=== PATIENT | male | born 1990 | race Hispanic/Latino ===

== ENCOUNTER 2016-09-18 01:47 | Emergency (ER) | payer OTHER ==
[~2016-09-18] VITALS: Ht 165.1 cm; Wt 59.0 kg
[2016-09-18] MEDS ORDERED: DICL50TA6 PO (02:52)
--- NOTE | 2016-09-18 02:52 | ED Chest Pain ---
General Chief Complaint: Chest Pain Stated Complaint: CHEST PAIN Nursing Triage Note: c/o chest pain x 1 week Nursing Sepsis Screen: No Definite Risk Source: patient Exam Limitations: no limitations History of Present Illness Time seen by provider: 02:22 Initial Comments Patient presents c/ a 1 week hx of intermittent sharp stabbing right sided lower ACW pain. Worse c/ full inspiration and full expiration. Never had before. No N/V, or diaphoresis. No radiation. No SOA; No cough. No fever. Not aware of any injury. Timing/Duration: 1 week, intermittent Severity/Quality: sharp, stabbing (06/24) Location: other (right lower ACW) Radiation: no radiation Activities at Onset: other (unknown) Prior CP/Workup: no prior chest pain, no prior cardiac workup Modifying Factors: worse with breathing, worse with palpation ASA po ROLL SCALE MAN: No NTG SL ROLL SCALE MAN: No Associated Symptoms: No diaphoresis, No fever/chills, No nausea/vomiting, No shortness of breath, No swelling/lump in chest, No syncope Allergies and Home Medications Allergies Coded Allergies: No Known Drug Allergies (Unverified , 01/21/16) Home Medications Diclofenac Sodium 50 Mg Tablet.dr, 50 MG PO Q6H PRN for chest pain, #30 Ref 0 Prescribed by: MEENAKSHI PENNY on 09/18/16 0252 Review of Systems Constitutional: see HPI Cardiovascular: See HPI, Chest Pain All Other Systems Reviewed Negative Unless Noted: Yes (Negative excepted noted.) Past [id number]-Pisbea-Iylkxi Hx Patient Social History Alcohol Use: Denies Use Recreational Drug Use: No Type Used: Cigarettes Recent Foreign Travel: No Contact w/Someone Who Travel: No Recent Infectious Disease Expo: No Recent Hopitalizations: No Immunizations Up To Date Tetanus Booster (TDap): Less than 5yrs Seasonal Allergies Seasonal Allergies: No Surgeries HX Surgeries: Yes (LUNG) Respiratory Hx Respiratory Disorders: No Cardiovascular Hx Cardiac Disorders: No Neurological Hx Neurological Disorders: No Reproductive System Hx Reproductive Disorders: No Genitourinary Hx Genitourinary Disorders: No Gastrointestinal Hx Gastrointestinal Disorders: No Musculoskeletal Hx Musculoskeletal Disorders: No Endocrine Hx Endocrine Disorders: No HEENT HX ENT Disorders: No Cancer Hx Cancer: No Psychosocial Hx Psychiatric Problems: No Integumentary HX Skin/Integumentary Disorder: No Blood Transfusions Hx Blood Disorders: No Adverse Reaction to a Blood Tr: No Physical Exam Vital Signs Vital Sign - Last 12Hours 09/18/16 02:04 Temp 98.8 Pulse 83 Resp 18 B/P (MAP) 119/88 Pulse Ox 97 Capillary Refill : Less Than 3 Seconds General Appearance: No Apparent Distress, WD/WN HEENT: Normal ENT Inspection Neck: Normal Inspection Respiratory: Lungs Clear, No Respiratory Distress Cardiovascular: Regular Rate, Rhythm, Other ((+) right lower ACW tenderness c/ palpation. Reproduces patient's pain.) Rectal: Deferred Neurologic/Psychiatric: Alert, Oriented x3, No Motor/Sensory Deficits, Normal Mood/Affect Skin: Warm/Dry Progress/Results/Core Measures Results/Orders My Orders Orders - MEENAKSHI PENNY DO Chest Pa/Lat (2 View) (09/18/16 02:22) Ibuprofen Tablet (Motrin Tablet) (09/18/16 03:00) Medications Given in ED Current Medications Medications Dose Ordered Sig/Nahid Route Start Time Stop Time Status Last Admin Dose Admin Ibuprofen 600 mg ONCE ONCE PO 09/18/16 03:00 09/18/16 03:00 DC 09/18/16 02:58 600 MG Vital Signs/I&O Vital Sign - Last 12Hours 09/18/16 09/18/16 02:04 02:58 Temp 98.8 98.8 Pulse 83 83 Resp 18 18 B/P (MAP) 119/88 Pulse Ox 97 97 Blood Pressure Mean: 98 ECG Initial ECG Impression Date: Sep 18, 2016 Initial ECG Impression Time: 02:12 Initial ECG Rate: 76 Initial ECG Rhythm: Normal Sinus Initial ECG Intervals: Normal Initial ECG Impression: Normal Initial ECG Comparisson: No Previous ECG Available Diagnostic Imaging Diagonstic Imaging: Xray Plain Films/CT/US/NM/MRI: chest Reviewed: Reviewed by Me (nothing acute) Departure Impression Impression: Primary Impression: Costochondritis, acute Disposition: 01 HOME, SELF-CARE Condition: Stable Departure-Patient Inst. Decision time for Depature: 02:51 Referrals: AZRA FRAGOSO MD Patient Instructions: Costochondritis (DC) Scripts Diclofenac Sodium (Diclofenac Sodium) 50 Mg Tablet. 50 MG PO Q6H Y for chest pain, #30 TAB 0 Refills Prov: MEENAKSHI PENNY DO 09/18/16 MEENAKSHI PENNY DO Sep 18, 2016 02:52
[2016-09-18 02:58] VITALS: BP 119/88
[2016-09-18] MEDS ORDERED: IBUPROFEN 600 MG (MOTRIN) TAB PO ONE (03:00)
--- NOTE | 2016-09-18 07:26 | Diagnostic Imaging Report ---
EXAM: CHEST PA/LAT (2 VIEW) INDICATION: None. COMPARISON: None. FINDINGS: Normal heart size and pulmonary vascularity. No focal pulmonary opacity, pleural effusion or pneumothorax. Osseous structures are unremarkable. IMPRESSION: Negative chest. Dictated by: Dictated on workstation # [id number]
== END 2016-09-18 02:58 | disposition home or self-care (01) ==
LOC: EDUNIT# 01:47 → ER 01:50
DX: M94.0 Chondrocostal junction syndrome [Tietze] (principal)
CPT/HCPCS: 71020; 99283